=== PATIENT | female | born 1935 | race Caucasian/White ===

== ENCOUNTER → 2017-02-25 | Outpatient (CLI) | payer OTHER ==
[~2017-02-25] MED LIST: AMLODIPINE BESYL5 M1 PO; ASPIR 8181 MG PO; COMBIGAN5 ML OP; COZAAR100 MG PO; COZAAR50 MG PO; DORZOLAMIDE HYD10 M2 OD; LOVAZA1 G1 PO; LUMIGAN2.5 M1 OU; MOTRIN800 MG PO; SIMVASTATIN10 M1 PO; TRENTAL400 MG PO
== END | disposition home or self-care (01) ==
LOC: RD 12:58
DX: S42.92XD Fracture of left shoulder girdle, part unspecified, subsequent encounter for fracture with routine healing (principal); X58.XXXD Exposure to other specified factors, subsequent encounter

== ENCOUNTER 2017-03-24 16:06 | Emergency (ER) | payer OTHER ==
[~2017-03-24] VITALS: Ht 162.6 cm; Wt 75.1 kg
[2017-03-24 17:55] VITALS: BP 145/80
== END 2017-03-24 17:55 | disposition home or self-care (01) ==
LOC: ED 16:06
DX: I10 Essential (primary) hypertension (principal); E78.00 Pure hypercholesterolemia, unspecified; Z88.5 Allergy status to narcotic agent; Z88.8 Allergy status to other drugs, medicaments and biological substances

== ENCOUNTER → 2017-11-10 | Outpatient (CLI) | payer OTHER | END | disposition home or self-care (01) | LOC: RD 13:41 | DX: M54.9 Dorsalgia, unspecified (principal) ==

== ENCOUNTER → 2018-02-04 | Outpatient (CLI) | payer OTHER | END | disposition home or self-care (01) | LOC: RD 11:55 | DX: M25.512 Pain in left shoulder (principal) | CPT/HCPCS: Q0092 ==

== ENCOUNTER 2018-04-08 09:37 | Emergency (ER) | payer OTHER ==
[~2018-04-08] VITALS: Ht 149.9 cm; Wt 75.7 kg
[2018-04-08 09:40] VITALS: Ht 149.9 cm; Wt 75.7 kg
[2018-04-08 11:38] VITALS: BP 144/81
== END 2018-04-08 12:11 | disposition home or self-care (01) ==
LOC: ED 09:37
DX: M19.012 Primary osteoarthritis, left shoulder (principal); I10 Essential (primary) hypertension; E78.00 Pure hypercholesterolemia, unspecified; Z88.6 Allergy status to analgesic agent; Z88.5 Allergy status to narcotic agent
CPT/HCPCS: J1885; Q0092

== ENCOUNTER 2019-07-22 10:53 | Emergency (ER) | payer OTHER ==
[~2019-07-22] VITALS: Ht 149.9 cm; Wt 79.4 kg
[2019-07-22 11:06] VITALS: Ht 149.9 cm; Wt 79.4 kg
[2019-07-22 12:43] LABS: CALCIUM 8.5 mg/dL (8.5-10.1); CHLORIDE SERUM 101 mmol/L (98-107); CREATININE SERUM 0.9 mg/dL (0.6-1.0); GLUCOSE SERUM 152 mg/dL (74-106); POTASSIUM SERUM 3.9 mmol/L (3.5-5.1); SODIUM SERUM 137 mmol/L (136-145)
[2019-07-22 12:46] LABS: BASOPHIL % 0.1 % (0-2); PLATELET COUNT 188 x10^3mcL (130-400)
[2019-07-22 14:40] LABS: microscopic required? YES; urine erythrocyte 1+ (NEGATIVE)
[2019-07-22 16:50] VITALS: BP 101/65
== END 2019-07-22 16:51 | disposition home or self-care (01) ==
LOC: ED 10:53
PROVIDERS: Student in an Organized Health Care Education/Training Program
DX: N12 Tubulo-interstitial nephritis, not specified as acute or chronic (principal); R42 Dizziness and giddiness; I10 Essential (primary) hypertension; Z88.6 Allergy status to analgesic agent; E78.00 Pure hypercholesterolemia, unspecified; Z88.5 Allergy status to narcotic agent; Z98.890 Other specified postprocedural states
CPT/HCPCS: J0696; J1885; J7030

== ENCOUNTER → 2019-08-23 | Outpatient (CLI) | payer OTHER | END | disposition home or self-care (01) | LOC: RD 10:05 | PROC: BT40ZZZ Ultrasonography of Bladder (ICD-10-PCS; principal; 2019-08-23) | DX: N32.89 Other specified disorders of bladder (principal) | CPT/HCPCS: 76770 ==

== ENCOUNTER 2019-09-15 08:26 | Emergency (ER) | payer OTHER ==
[~2019-09-15] VITALS: Ht 149.9 cm; Wt 77.6 kg
[2019-09-15 08:31] VITALS: Ht 149.9 cm; Wt 77.6 kg
[2019-09-15 09:31] LABS: microscopic required? NO
[2019-09-15 10:03] LABS: UA SPECIFIC GRAVITY <=1.005 (1.005-1.035); urine erythrocyte NEGATIVE (NEGATIVE)
[2019-09-15 10:30] VITALS: BP 146/55
== END 2019-09-15 10:30 | disposition home or self-care (01) ==
LOC: ED 08:26
PROVIDERS: Emergency Medicine
DX: R30.0 Dysuria (principal); I10 Essential (primary) hypertension; E78.00 Pure hypercholesterolemia, unspecified; Z88.6 Allergy status to analgesic agent; Z88.5 Allergy status to narcotic agent
CPT/HCPCS: J1885